=== PATIENT | male | born 1995 | race Caucasian/White ===

== ENCOUNTER 2017-12-27 19:52 | Emergency (ER) | payer OTHER ==
[~2017-12-27] VITALS: Ht 175.3 cm; Wt 77.1 kg
[~2017-12-27 19:52] MED LIST: IBUPROFEN100 MG/52 PO; KEFLEX500 MG PO; NOHOMEMEDICATIONS; NORCO 5-325 TA1 EACH PO
[2017-12-27] MEDS ORDERED: CYCLOBENZAPRINE10 MG PO (20:50)
[2017-12-27 21:33] VITALS: BP 117/68
== END 2017-12-27 21:34 | disposition home or self-care (01) ==
LOC: M.ERS 19:52
DX: S00.01XA Abrasion of scalp, initial encounter (principal); V89.2XXA Person injured in unspecified motor-vehicle accident, traffic, initial encounter; Y93.I9 Activity, other involving external motion; Y92.89 Other specified places as the place of occurrence of the external cause; Y99.8 Other external cause status